=== PATIENT | female | born 1990 | race African-American/Black ===

== ENCOUNTER 2017-12-02 21:15 | Emergency (ER) | payer BC ==
[2017-12-02] MEDS ORDERED: Ketorolac Tromethamine 30 MG/ML VIAL ONE (22:26)
== END 2017-12-02 22:58 | disposition home or self-care (01) ==
LOC: ERS 21:15
DX: K03.81 Cracked tooth (principal); K04.7 Periapical abscess without sinus
CPT/HCPCS: 96372; J1885

== ENCOUNTER 2017-12-15 10:27 | Emergency (ER) | payer BC ==
[2017-12-15] MEDS ORDERED: Ketorolac Tromethamine 30 MG/ML VIAL ONE ×2 (12:16)
== END 2017-12-15 12:45 | disposition home or self-care (01) ==
LOC: ERS 10:27
DX: K02.9 Dental caries, unspecified (principal)
CPT/HCPCS: 96372; J1885

== ENCOUNTER 2018-01-26 10:03 | Emergency (ER) | payer BC ==
[2018-01-26] MEDS ORDERED: Ondansetron ODT 8 MG TAB ONE (11:04)
== END 2018-01-26 11:45 | disposition home or self-care (01) ==
LOC: ERS 10:03
DX: R11.2 Nausea with vomiting, unspecified (principal)
CPT/HCPCS: 99283

== ENCOUNTER 2018-01-29 03:25 | Emergency (ER) | payer BC ==
[2018-01-29] MEDS ORDERED: Adacel (T-DAP) 0.5 ML VIAL ONE (03:47)
[2018-01-29] MEDS ORDERED: Bacitracin Zinc 1 Packet ONE (04:50)
--- NOTE | 2018-01-29 08:10 | RAD ---
LEFT HAND 3 VIEWS: Date: 01/29/18 HISTORY: Trauma to hand. Laceration. FINDINGS: Carpals appear normally aligned and intact. Metacarpals and phalanges appear intact. IMPRESSION: No evidence of fracture or other acute osseous abnormality. POS: [facility]
== END 2018-01-29 05:00 | disposition home or self-care (01) ==
LOC: ERS 03:25
DX: S61.412A Laceration without foreign body of left hand, initial encounter (principal); Z23 Encounter for immunization; W45.8XXA Other foreign body or object entering through skin, initial encounter
CPT/HCPCS: 12002; 90471; 90715

== ENCOUNTER 2018-02-22 17:36 | Emergency (ER) | payer BC ==
[2018-02-22] MEDS ORDERED: Metoclopramide HCl 10 MG/2 ML VIAL ONE (18:07)
[2018-02-22] MEDS ORDERED: diphenhydrAMINE 50 MG/ML VIAL ONE (18:07)
== END 2018-02-22 20:12 | disposition home or self-care (01) ==
LOC: ERS 17:36
DX: R51 Headache (principal)
CPT/HCPCS: 96361; 96374; 96375; J1200; J2765

== ENCOUNTER 2018-06-14 11:42 | Emergency (ER) | payer BC, OTHER ==
[2018-06-14] MEDS ORDERED: Ketorolac Tromethamine 30 MG/ML VIAL ONE (12:19)
== END 2018-06-14 12:48 | disposition home or self-care (01) ==
LOC: ERS 11:42
DX: K02.9 Dental caries, unspecified (principal); G43.909 Migraine, unspecified, not intractable, without status migrainosus
CPT/HCPCS: 96372; J1885

== ENCOUNTER 2018-11-17 18:03 | Emergency (ER) | payer BC ==
[2018-11-17] MEDS ORDERED: Lidocaine 1% w/Epinephrine 1:100K 20 ML VIAL ONE (19:28)
[2018-11-17] MEDS ORDERED: Lidocaine 1% PF 5 ML VIAL ONE (19:37)
[2018-11-17] MEDS ORDERED: Azithromycin 250 MG TAB ONE (19:37)
[2018-11-17] MEDS ORDERED: cefTRIAXone\\ROCEPHIN 250 MG VIAL ONE (19:37)
[2018-11-17] MEDS ORDERED: Ondansetron ODT 4 MG TAB ONE (21:22)
[2018-11-18 20:24] LABS: Chlamydia by PCR Not Detected (NotDetected)
[2018-11-18 20:25] LABS: GC by PCR Not Detected (NotDetected)
== END 2018-11-17 22:11 | disposition home or self-care (01) ==
LOC: ERS 18:03
DX: L02.215 Cutaneous abscess of perineum (principal); N76.0 Acute vaginitis
CPT/HCPCS: 56405; 87480; 87491; 87510; 87591; 87660; 96372; J0696; J2001; Q0162

== ENCOUNTER 2018-11-21 16:33 | Emergency (ER) | payer BC ==
--- NOTE | 2018-11-21 18:50 | RAD ---
RIGHT MIDDLE FINGER: History: Finger laceration. FINDINGS: There are no signs of fracture or any radiopaque foreign bodies. IMPRESSION: No evidence of fracture. Soft tissue swelling noted. POS: [facility]
== END 2018-11-21 19:05 | disposition home or self-care (01) ==
LOC: ERS 16:33
DX: S61.212A Laceration without foreign body of right middle finger without damage to nail, initial encounter (principal); G43.909 Migraine, unspecified, not intractable, without status migrainosus; W22.8XXA Striking against or struck by other objects, initial encounter
CPT/HCPCS: 12001

== ENCOUNTER 2018-12-28 16:00 | Emergency (ER) | payer BC ==
[2018-12-28 16:37] LABS: Bilirubin Negative (Negative); Blood, Urine Negative (Negative); Clarity CLEAR (Clear); Glucose, Urine (Dipstick) Negative (Negative); Leukocyte Negative (Negative); Nitrite Negative (Negative); Protein, Urine (Dipstick) Negative (Neg-Trace); Specific Gravity, Urine 1.023 (1.002-1.036)
[2018-12-28 16:50] LABS: Pregnancy Test - Urine (BHCG) Negative (Negative); Pregu Control Background? CLEAR/WHITE (CLR/WHITE); Pregu Control Bar Appear? YES (CONTROL BAR); Specific Gravity 1.023 (1.002-1.036)
[2018-12-28] MEDS ORDERED: Ondansetron ODT 4 MG TAB ONE (17:13)
[2018-12-28 17:28] LABS: #Eosinphils 0.7 thou/uL (0.0-0.7); #Monocytes 0.8 thou/uL (0.11-0.59); #Neutrophils 3.4 thou/uL (1.40-6.50); %Basophils 0.6 % (0.0-1.0); %Monocytes 11.2 % (0.0-10.0); %Neutrophils 49.3 % (42.0-75.0); Mean Corpuscular HGB CONC 32.6 g/dL (32.0-36.0); Mean Corpuscular Hemoglobin 31.4 pg (27.0-31.0); Mean Corpuscular Volume 96.5 fL (78.0-98.0); Platelet Count 196 thou/uL (130-400); RBC Distribution Width 11.9 % (11.5-14.5); Red Blood Cell (RBC) Count 4.44 mill/uL (4.20-5.40); White Blood Cell (WBC) Count 6.8 thou/uL (4.8-10.8)
[2018-12-28 17:54] LABS: ALT (SGPT) 25 U/L (8-55); AST (SGOT) 29 U/L (5-34); Albumin 3.2 g/dL (3.5-5.0); Alkaline Phosphatase 50 U/L (40-150); Anion Gap 10 mmol/L (10-20); BUN (Urea Nitrogen) 11 mg/dL (7.0-18.7); Bilirubin, Total 0.2 mg/dL (0.2-1.2); Calc. Creatinine Clearance 0 mL/min (70-130); Calcium 8.3 mg/dL (7.8-10.44); Carbon Dioxide 26 mmol/L (22-29); Chloride 105 mmol/L (98-107); Estimated GFR-MDRD Greater than 90; Globulin 2.7 g/dL (2.4-3.5); Glucose 102 mg/dL (70-105); Lipase 42 U/L (8-78); Potassium 4.3 mmol/L (3.5-5.1); Protein, Total 5.9 g/dL (6.0-8.3); Sodium 137 mmol/L (136-145)
[2018-12-28] MEDS ORDERED: Metoclopramide HCl 10 MG TAB ONE (18:41)
== END 2018-12-28 19:52 | disposition home or self-care (01) ==
LOC: ERS 16:00
DX: B34.9 Viral infection, unspecified (principal); G43.909 Migraine, unspecified, not intractable, without status migrainosus
CPT/HCPCS: 36415; 80053; 81003; 81025; 83690; 85025; 99284; J8597; Q0162

== ENCOUNTER 2019-01-25 18:25 | Emergency (ER) | payer BC ==
[2019-01-25 19:39] LABS: Pregnancy Test - Urine (BHCG) POSITIVE (Negative)
[2019-01-25 19:40] LABS: Pregu Control Background? CLEAR/WHITE (CLR/WHITE); Pregu Control Bar Appear? YES (CONTROL BAR); Specific Gravity 1.009 (1.002-1.036)
== END 2019-01-25 21:33 | disposition left against medical advice (07) ==
LOC: ERS 18:25
DX: Z53.21 Procedure and treatment not carried out due to patient leaving prior to being seen by health care provider (principal)
CPT/HCPCS: 81025

== ENCOUNTER 2019-03-03 18:46 | Emergency (ER) | payer BC ==
[2019-03-03 19:19] LABS: #Eosinphils 0.1 thou/uL (0.0-0.7); #Monocytes 0.6 thou/uL (0.11-0.59); #Neutrophils 5.8 thou/uL (1.40-6.50); %Basophils 0.3 % (0.0-1.0); %Eosinophils 0.8 % (0.0-10.0); %Lymphocytes 23.8 % (21.0-51.0); %Neutrophils 68.2 % (42.0-75.0); Hemoglobin 10.1 g/dL (12.0-16.0); Mean Corpuscular HGB CONC 33.1 g/dL (32.0-36.0); Mean Corpuscular Hemoglobin 28.3 pg (27.0-31.0); Mean Corpuscular Volume 85.6 fL (78.0-98.0); Platelet Count 245 thou/uL (130-400); RBC Distribution Width 11.5 % (11.5-14.5); Red Blood Cell (RBC) Count 3.57 mill/uL (4.20-5.40); White Blood Cell (WBC) Count 8.6 thou/uL (4.8-10.8)
[2019-03-03 19:48] LABS: ALT (SGPT) 8 U/L (8-55); AST (SGOT) 12 U/L (5-34); Alkaline Phosphatase 46 U/L (40-150); Anion Gap 11 mmol/L (10-20); BUN (Urea Nitrogen) 11 mg/dL (7.0-18.7); Bilirubin, Total 0.3 mg/dL (0.2-1.2); Calc. Creatinine Clearance 0 mL/min (70-130); Carbon Dioxide 26 mmol/L (22-29); Chloride 102 mmol/L (98-107); Estimated GFR-MDRD Greater than 90; Globulin 2.5 g/dL (2.4-3.5); Glucose 96 mg/dL (70-105); Lipase 19 U/L (8-78); Protein, Total 6.5 g/dL (6.0-8.3); Sodium 135 mmol/L (136-145)
[2019-03-03 21:56] LABS: Bilirubin Negative (Negative); Blood, Urine Negative (Negative); Clarity CLEAR (Clear); Glucose, Urine (Dipstick) Negative (Negative); Leukocyte Trace (Negative); Nitrite Negative (Negative); Protein, Urine (Dipstick) Negative (Neg-Trace); Specific Gravity, Urine 1.022 (1.002-1.036)
[2019-03-03 21:58] LABS: Bacteria/HPF None Seen HPF (None Seen); Hyaline Casts/LPF 0-3 HYALINE CAST LPF (0-3 Hyaline); Pathc Cast-AUWi Flag 0.67 (0-2.49); RBC/HPF 0-3 HPF (0-3); Squamous Epithelial 0-3 HPF (0-3); WBC/HPF None Seen HPF (0-3)
[2019-03-03] MEDS ORDERED: diphenhydrAMINE 50 MG/ML VIAL ONE (22:20)
[2019-03-03] MEDS ORDERED: Magnesium 2 GM/50 ML BAG (IN WATER) ONE (22:20)
== END 2019-03-04 00:03 | disposition home or self-care (01) ==
LOC: ERS 18:46
DX: O99.89 Other specified diseases and conditions complicating pregnancy, childbirth and the puerperium (principal); R51 Headache; Z3A.10 10 weeks gestation of pregnancy
CPT/HCPCS: 36415; 80053; 81003; 81015; 83690; 85025; 96361; 96374; 96375; J1200; J3475

== ENCOUNTER 2022-04-09 15:51 | Emergency (ER) | payer OTHER, SELFPAY ==
[2022-04-09] MEDS ORDERED: Acetaminophen 500 MG TAB ONE (18:07)
[2022-04-09] MEDS ORDERED: Metoclopramide HCl 10 MG/2 ML VIAL ONE (18:19)
[2022-04-09] MEDS ORDERED: Ketorolac Tromethamine 30 MG/ML VIAL ONE (18:19)
[2022-04-09] MEDS ORDERED: diphenhydrAMINE 50 MG/ML VIAL ONE (18:19)
[2022-04-09 18:56] LABS: Bilirubin Negative (Negative); Blood, Urine Negative (Negative); Clarity Clear (Clear); Glucose, Urine (Dipstick) Normal (Negative); Ketone, Urine Negative (Negative); Leukocyte Negative Leu/uL (Negative); Nitrite Negative (Negative); Protein, Urine (Dipstick) Negative (Neg-Trace); Specific Gravity, Urine 1.012 (1.002-1.036); Urobilinogen Normal mg/dL (Less than 2)
[2022-04-09 19:02] LABS: Pregnancy Test - Urine (BHCG) Negative (Negative); Pregu Control Background? CLEAR/WHITE (CLR/WHITE); Pregu Control Bar Appear? YES (CONTROL BAR); Specific Gravity 1.012 (1.002-1.036)
== END 2022-04-09 19:43 | disposition home or self-care (01) ==
LOC: ERS 15:51
DX: G43.909 Migraine, unspecified, not intractable, without status migrainosus (principal)
CPT/HCPCS: 81003; 81025; 96365; 96375; J1200; J1885; J2765

== ENCOUNTER 2022-10-18 14:15 | Emergency (ER) | payer SELFPAY | END 2022-10-18 16:34 | disposition home or self-care (01) | LOC: ERS 14:15 | DX: B35.4 Tinea corporis (principal) | CPT/HCPCS: 99282 ==